=== PATIENT | male | born 1955 | race Caucasian/White ===

== ENCOUNTER 2019-10-12 10:52 | Outpatient (CLI) | payer OTHER ==
[~2019-10-12 10:52] MED LIST: AMLO10TA8 PO; BUPR200T31 PO; DOCU-131 PO; OLME1TAB86 PO; OXYC5TAB3 PO; ROSU20TA2 PO
== END 2019-10-12 23:59 | disposition home or self-care (01) ==
LOC: CFH 10:52
PROVIDERS: ATTEND Nurse Practitioner Family
DX: J18.9 Pneumonia, unspecified organism (principal)
CPT/HCPCS: 71046